=== PATIENT | male | born 1995 | race Caucasian/White ===

== ENCOUNTER 2020-09-28 10:53 | Inpatient (IN) | payer MEDICAID ==
[~2020-09-28] VITALS: Ht 170.2 cm; Wt 78.9 kg
[2020-09-28] MEDS ORDERED: IV NS 0.9% 1,000 ML BAG IV ONE (11:30)
[2020-09-28] MEDS ORDERED: ONDANSETRON HCL/PF 4 MG/2 ML VIAL IVP ONE (11:30)
--- NOTE | 2020-09-28 11:35 | NUR ---
BIBS TO ER BED 6. AAOX4. NOT IN RESP DISTRESS, BREATHING EVEN AND UNLABORED. CAME IN FOR PALPITATION AND CP UPON WAKING UP TODAY AND NAUSE, VOMMTING AND DIRHHEA FOR THE PAST 3 DAYS. PT REPORTS THAT HE WAS A LIVER TRANSPLANT PT, DONE BACJ IN 2007. WAS AT THE [facility]ESIDE FOR EVAL. ORDERS RECEIVED, NOTED AND CARRIED OUT. IV LINE ESTABLISHED ON L AC 18G, BLOOD DRAWN AND GIVEN TO PHLEB. PT IS ON MONITOR
[2020-09-28] MEDS ORDERED: ONDANSETRON HCL/PF 4 MG/2 ML VIAL ONE (11:41)
[2020-09-28 11:48] LABS: CREATININE 1.2 mg/dL (0.6-1.3); POTASSIUM 3.9 mmol/L (3.5-5.1)
[2020-09-28 11:54] LABS: BASOPHILS % (AUTO) 0.4 % (0.0-2.0); BILIRUBIN,DIRECT 0.4 mg/dL (0.0-0.2); BILIRUBIN,TOTAL 1.1 mg/dL (0.2-1.0); EOSINOPHILS % (AUTO) 2.4 % (0.0-6.0); HEMATOCRIT 44 % (39-51); HEMOGLOBIN 15.3 g/dL (13.5-17.5); LYMPHOCYTES # (AUTO) 0.6 /CMM (0.8-4.8); LYMPHOCYTES % (AUTO) 4.5 % (20.0-44.0); MEAN CORPUSCULAR HGB CONC 34 g/dl (31.0-36.0); MEAN CORPUSCULAR VOLUME 86 fL (80-96); MONOCYTES # (AUTO) 0.4 /CMM (0.1-1.30); MONOCYTES % (AUTO) 3.1 % (2.0-12.0); NEUTROPHILS # (AUTO) 10.9 /CMM (1.8-8.9); NEUTROPHILS % (AUTO) 89.6 % (43.0-81.0); PLATELET COUNT (AUTO) 192 /CMM (150-450); RED BLOOD CELL COUNT(AUTO) 5.17 MIL/uL (4.5-6.0); TOTAL PROTEIN, SERUM 7.5 g/dL (6.4-8.2); WHITE BLOOD COUNT (AUTO) 12.1 K/uL (4.3-11.0)
[2020-09-28 12:24] LABS: BILIRUBIN,URINE SMALL (NEGATIVE); COLOR,URINE YELLOW (YELLOW); LEUKOCYTE ESTERASE ,URINE Negative (NEGATIVE); NITRITE, URINE Negative (NEGATIVE); PH,URINE 5.5 (5.0-8.0); PROTEIN,URINE Negative (NEGATIVE); UGLUCOSE >=1000 mg/dL (NEGATIVE); UROBILINOGEN,URINE 0.2 EU/dL (0.2)
[2020-09-28 12:30] LABS: BACTERIA,URINE Rare /HPF (None Seen); RBC,URINE 0-2 /HPF (0-2); WBC,URINE 0-2 /HPF (0-3)
[2020-09-28 12:31] LABS: SQUAMOUS EPITHELIAL CELL,UR None Seen /HPF (None Seen)
[2020-09-28 12:33] LABS: CALCIUM, SERUM 9.9 mg/dL (8.5-10.1)
[2020-09-28] MEDS ORDERED: PRED5TAB PO (14:06)
[2020-09-28] MEDS ORDERED: MYCO250C8 MT (14:06)
[2020-09-28] MEDS ORDERED: DOCU100C36 PO (14:06)
[2020-09-28] MEDS ORDERED: INSU100V SQ (14:06)
[2020-09-28] MEDS ORDERED: MAGN400T26 PO (14:06)
[2020-09-28] MEDS ORDERED: TACR1CAP7 MT (14:06)
[2020-09-28] MEDS ORDERED: OMEP20TA5 PO (14:06)
[2020-09-28] MEDS ORDERED: CALC-883 PO (14:08)
[2020-09-28] MEDS ORDERED: ZINC1CAP2 PO (14:08)
--- NOTE | 2020-09-28 14:20 | NUR ---
[facility] LIVER TRANSPLANT TO MD. REYES PAGED FOR ADMISSION.
--- NOTE | 2020-09-28 16:08 | NUR ---
COVID POSITIVE. CALLED FOR ROOM ASSISGNMENT
--- NOTE | 2020-09-28 16:38 | NUR ---
ROOM ASSIGNMENT: [id number] TELE
[2020-09-28] MEDS ORDERED: MAG HYDROX/AL HYDROX/SIMETH 30 ML UDC PO PRN (17:30)
[2020-09-28] MEDS ORDERED: MAGNESIUM HYDROXIDE 30 ML UDC PO PRN (17:30)
[2020-09-28] MEDS ORDERED: ONDANSETRON HCL/PF 4 MG/2 ML VIAL IVP PRN (17:30)
--- NOTE | 2020-09-28 17:30 | NUR ---
PATIENT RECEIVED IN BED ON ROOM AIR. PATIENT IS AMBULATORY AND ALERT, ORIENTED X4. PT HAS LEFT AC 20G INTACT AND FLUSHED WELL. BELONGINGS CHECKED, ALL SAFETY MEASURES IN PLACE. WILL CONTINUE TO MONITOR
[2020-09-28] MEDS: MYCOPHENOLATE MOFETIL 250 MG CAPSULE PO SCH (18:29)
[2020-09-28] MEDS: MORPHINE SULFATE INJ 2 MG/ML DISP.SYRIN IV PRN ×2 (18:41→23:17)
--- NOTE | 2020-09-28 19:00 | NUR ---
ALL PATIENT NEEDS ENDORSED TO ONCOMING RN. CONSENT OBTAINED FOR CT ABDOMENT/PELVIS WITH CONTRAST. PATIENT CURRENTLY NPO EXCEPT MEDS. ALL SAFETY MEASURES IN PLACE . REPORT GIVEN TO ONCOMING RN FOR BETH
--- NOTE | 2020-09-28 19:59 | NUR ---
RN NOTE PATIENT A/O X3, ABLE TO MAKE NEEDS KNOWN. NO SOB OR ANY RESPIRATORY DISTRESS. ON ROOM AIR, O2 WNL. WITH IV ACCESS LAC #20, PATENT AND INTACT. ALL NEEDS ANTICIPATED. BED LOCKED AND IN LOWEST POSITION. CALL LIGHT WITHIN REACH. WILL CONTINUE TO MONITOR.
[2020-09-28] MEDS: TACROLIMUS ANHYDROUS 0.5 MG CAPSULE PO SCH (20:38)
[2020-09-28] MEDS ORDERED: TACROLIMUS ANHYDROUS 1 MG CAPSULE PO SCH (21:00)
[2020-09-28] MEDS ORDERED: DEXTROSE 50%-WATER 50 ML DISP.SYRIN IV PRN (23:00)
[2020-09-28] MEDS ORDERED: IV D5/0.45 NACL 1,000 ML IV PRN (23:00)
[2020-09-29] MEDS: BLOOD SUGAR DIAGNOSTIC 1 EACH STRIP IN SCH ×5 (00:13→21:24)
[2020-09-29] MEDS: INSULIN REGULAR, HUMAN 100 UNIT/ML 3 ML VIAL SQ PRN ×3 (00:19→18:19)
--- NOTE | 2020-09-29 00:38 | NUR ---
BLOOD SUGAR 139, HELD INSULIN DOSE. PATIENT IS NPO DIAGNOSIS
[2020-09-29] MEDS: MORPHINE SULFATE INJ 2 MG/ML DISP.SYRIN IV PRN ×3 (05:29→21:25)
--- NOTE | 2020-09-29 06:00 | NUR ---
BLOOD SUGAR 183, INSULIN HELD. PATIENT IS NPO DX.
[2020-09-29 06:35] LABS: BASOPHILS # (AUTO) 0.1 /CMM (0.0-0.2); BASOPHILS % (AUTO) 0.7 % (0.0-2.0); EOSINOPHILS % (AUTO) 9.3 % (0.0-6.0); HEMATOCRIT 40 % (39-51); HEMOGLOBIN 13.3 g/dL (13.5-17.5); LYMPHOCYTES # (AUTO) 2.3 /CMM (0.8-4.8); LYMPHOCYTES % (AUTO) 30.4 % (20.0-44.0); MEAN CORPUSCULAR HGB CONC 34 g/dl (31.0-36.0); MEAN CORPUSCULAR VOLUME 85 fL (80-96); MONOCYTES # (AUTO) 0.6 /CMM (0.1-1.30); MONOCYTES % (AUTO) 8.3 % (2.0-12.0); NEUTROPHILS # (AUTO) 3.9 /CMM (1.8-8.9); NEUTROPHILS % (AUTO) 51.3 % (43.0-81.0); PLATELET COUNT (AUTO) 159 /CMM (150-450); RED BLOOD CELL COUNT(AUTO) 4.69 MIL/uL (4.5-6.0); WHITE BLOOD COUNT (AUTO) 7.6 K/uL (4.3-11.0)
[2020-09-29 06:50] LABS: CALCIUM, SERUM 8.1 mg/dL (8.5-10.1); MAGNESIUM 1.5 mg/dL (1.8-2.4); POTASSIUM 3.5 mmol/L (3.5-5.1)
--- NOTE | 2020-09-29 07:40 | NUR ---
MS RN NOTE OPENING NOTES RECEIVED PATIENT IN BED, AWAKE, A/O X4, ABLE TO MAKE NEEDS KNOWN. NO SOB OR ANY RESPIRATORY DISTRESS. ON ROOM AIR. IV ACCESS ON LAC #20, PATENT AND INTACT RUNNING D5 1/2 NS @ 75ML/HR. SAFETY PRECAUTIONS IN PLACE; BE IN LOW POSITION AND LOCKED, RAILS UP X2, CALL LIGHT WITHIN REACH. WILL CONTINUE TO MONITOR PATIENT.
--- NOTE | 2020-09-29 07:41 | NUR ---
RN NOTE PATIENT A/O X3, ABLE TO MAKE NEEDS KNOWN. NO SOB OR ANY RESPIRATORY DISTRESS. ON ROOM AIR, O2 WNL. WITH IV ACCESS LAC #20, PATENT AND INTACT RUNNING D5 1/2 NS @ 75ML/HR. ALL NEEDS ANTICIPATED. BED LOCKED AND IN LOWEST POSITION. CALL LIGHT WITHIN REACH. ENDORSED TO AM SHIFT.
[2020-09-29] MEDS: MYCOPHENOLATE MOFETIL 250 MG CAPSULE PO SCH ×2 (08:27→16:31)
[2020-09-29] MEDS: PANTOPRAZOLE 40 MG VIAL IV SCH (08:27)
[2020-09-29] MEDS: ZINC SULFATE 220 MG CAPSULE PO SCH (08:27)
[2020-09-29] MEDS: CALCIUM CARB 600MG /VIT D 1 EACH TABLET PO SCH (08:28)
[2020-09-29] MEDS: predniSONE 5 MG TABLET PO SCH (08:28)
[2020-09-29] MEDS: TACROLIMUS ANHYDROUS 0.5 MG CAPSULE PO SCH ×2 (08:29→21:24)
[2020-09-29] MEDS ORDERED: Magnesium 1GM/D5W 100ML PREMIX PIGGYBACK IV ONE (09:30)
[2020-09-29] MEDS ORDERED: DEXTROSE 50%-WATER 50 ML DISP.SYRIN IV PRN (09:30)
[2020-09-29] MEDS ORDERED: IV NS 0.9% 250 ML IV ONE (09:38)
[2020-09-29] MEDS ORDERED: CT SWABBABLE VALVE TRANS SET 1 EA INFUS.SET MC ONE (09:38)
[2020-09-29] MEDS ORDERED: IOHEXOL-300 100 ML VIAL IV ONE (09:38)
[2020-09-29] MEDS: MGSO4/D5W 100 ML IV SCH ×3 (09:51→11:52)
--- NOTE | 2020-09-29 11:01 | NUR ---
MS RN NOTES PATIENT COMPLAINING OF HEADACHE 7-8 OUT OF 10; REQUESTING PRN PAIN MEDICATION. PRN MORPHINE ADMINISTERED. WILL REASSESS.
[2020-09-29 12:19] LABS: ALBUMIN 3.3 g/dL (3.4-5.0); BILIRUBIN,DIRECT 0.3 mg/dL (0.0-0.2); BILIRUBIN,TOTAL 1.1 mg/dL (0.2-1.0); TOTAL PROTEIN, SERUM 6.5 g/dL (6.4-8.2)
[2020-09-29] MEDS ORDERED: METOCLOPRAMIDE HCL 10 MG/2 ML VIAL IV ONE (13:00)
--- NOTE | 2020-09-29 18:55 | NUR ---
MS RN CLOSING NOTES PATIENT RESTING IN BED, AWAKE, A/O X4, ABLE TO MAKE NEEDS KNOWN. NO SOB OR ANY RESPIRATORY DISTRESS. ON ROOM AIR. IV ACCESS ON LAC #20, PATENT AND INTACT RUNNING D5 1/2 NS @ 75ML/HR. ALL NEEDS ATTENDED THROUGHOUT THE DAY. SAFETY PRECAUTIONS REMAIN IN PLACE; BED IN LOW POSITION AND LOCKED, RAILS UP X2, CALL LIGHT WITHIN REACH. WILL ENDORSE TO HOUSE DIRECTOR NURSE.
--- NOTE | 2020-09-29 19:13 | NUR ---
RN NOTE RECEIVED PT ALERT AND ORIENTED X 4. ON ROOM AIR, NO APPARENT DISTRESS, DENIES PAIN OR DISCOMFORT, AMBULATORY, LEFT AC 20G IV PATENT AND FLUSHING WELL, PLAN OF CARE DISCUSSED, CALL LIGHT WITHIN REACH, SAFETY MEASURES IN PLACE PER PROTOCOL, WILL MONITOR
[2020-09-29 20:00] VITALS: BP 114/70
--- NOTE | 2020-09-29 21:15 | NUR ---
RN NOTE BLOOD SUGAR 66. NO SYMPTOMS OF HYPOGLYCEMIA, REGULAR INSULIN AND LANTUS WITHHELD. GAVE PT ORANGE JUICE AND ADDITIONAL SNACKS.
[2020-09-29] MEDS ORDERED: INSULIN GLARGINE, 100 UNIT/ML CARTRIDGE SQ SCH (22:00)
--- NOTE | 2020-09-30 02:00 | NUR ---
RN NOTE PT AWAKE LYING IN BED IN SUPINE POSITION PLAYING ON CELLPHONE, NO FURTHER NEEDS AT THIS TIME.
[2020-09-30 04:00] VITALS: BP 126/86
[2020-09-30] MEDS: MORPHINE SULFATE INJ 2 MG/ML DISP.SYRIN IV PRN (04:47)
[2020-09-30 06:30] LABS: BASOPHILS # (AUTO) 0.1 /CMM (0.0-0.2); BASOPHILS % (AUTO) 0.8 % (0.0-2.0); EOSINOPHILS % (AUTO) 7.3 % (0.0-6.0); HEMATOCRIT 39 % (39-51); HEMOGLOBIN 13.6 g/dL (13.5-17.5); LYMPHOCYTES # (AUTO) 2.6 /CMM (0.8-4.8); LYMPHOCYTES % (AUTO) 31.1 % (20.0-44.0); MEAN CORPUSCULAR HGB CONC 35 g/dl (31.0-36.0); MEAN CORPUSCULAR VOLUME 84 fL (80-96); MONOCYTES # (AUTO) 0.7 /CMM (0.1-1.30); MONOCYTES % (AUTO) 8.1 % (2.0-12.0); NEUTROPHILS # (AUTO) 4.4 /CMM (1.8-8.9); NEUTROPHILS % (AUTO) 52.7 % (43.0-81.0); PLATELET COUNT (AUTO) 173 /CMM (150-450); RED BLOOD CELL COUNT(AUTO) 4.69 MIL/uL (4.5-6.0); WHITE BLOOD COUNT (AUTO) 8.3 K/uL (4.3-11.0)
--- NOTE | 2020-09-30 06:41 | NUR ---
RN NOTE PT SLEEPING IN BED IN SUPINE POSITION BUT EASILY AROUSABLE. NO SIGNS OF PAIN OR DISCOMFORT. IN NO APPARENT DISTRESS, ALL NEEDS MET AND ATTENDED TO, CALL LIGHT WITHIN REACH, SAFETY MEASURES IN PLACE
[2020-09-30 07:11] LABS: ALBUMIN 3.1 g/dL (3.4-5.0); BILIRUBIN,TOTAL 0.6 mg/dL (0.2-1.0); CALCIUM, SERUM 8.3 mg/dL (8.5-10.1); CREATININE 0.9 mg/dL (0.6-1.3); POTASSIUM 3.2 mmol/L (3.5-5.1); TOTAL PROTEIN, SERUM 6.5 g/dL (6.4-8.2)
--- NOTE | 2020-09-30 07:20 | NUR ---
RN NOTE ENDORSED PT TO LEATHER DRIER SOON IN STABLE CONDITION.
--- NOTE | 2020-09-30 07:45 | NUR ---
RN OPENING NOTE PT A/Ox4, LYING IN BED BREATHING RA WITH NO SIGNS OF RESP DISTRESS OR SOB, SPO2 99%. PT HAS RT HAND #22, FLUSHED, PATENT AND INTACT WITH NO S/S OF INFECTION OR INFILTRATION. PT DENIES PAIN. PT ABLE TO AMBULATE NO PROBLEM. ALL PT SAFETY PRECAUTIONS IN PLACE, WILL CONT TO MONITOR
[2020-09-30 08:00] VITALS: BP 127/90
[2020-09-30] MEDS: BLOOD SUGAR DIAGNOSTIC 1 EACH STRIP IN SCH ×2 (09:31→12:26)
[2020-09-30] MEDS: PANTOPRAZOLE 40 MG VIAL IV SCH (09:32)
[2020-09-30] MEDS: TACROLIMUS ANHYDROUS 0.5 MG CAPSULE PO SCH (09:33)
[2020-09-30] MEDS: predniSONE 5 MG TABLET PO SCH (09:34)
[2020-09-30] MEDS: ZINC SULFATE 220 MG CAPSULE PO SCH (09:34)
[2020-09-30] MEDS: CALCIUM CARB 600MG /VIT D 1 EACH TABLET PO SCH (09:34)
[2020-09-30] MEDS: MYCOPHENOLATE MOFETIL 250 MG CAPSULE PO SCH (09:35)
[2020-09-30] MEDS: INSULIN REGULAR, HUMAN 100 UNIT/ML 3 ML VIAL SQ PRN ×2 (09:54→12:29)
[2020-09-30] MEDS: POTASSIUM CHLORIDE 20 MEQ TAB.PRT.SR PO SCH ×2 (11:21→12:28)
[2020-09-30] MEDS ORDERED: ONDA4TAB11 PO (13:56)
[2020-09-30 16:00] VITALS: BP 121/84
--- NOTE | 2020-09-30 17:30 | NUR ---
RN NOTE PT DISCHARGED IN STABLE CONDITION
== END 2020-09-30 17:41 | disposition home or self-care (01) | DRG 282 ==
LOC: ER 11:03 → TELE1 16:29 → MEDSG1 17:34
PROVIDERS: ADMIT Nurse Practitioner Family; ATTEND Nurse Practitioner Family
DX: K85.90 Acute pancreatitis without necrosis or infection, unspecified (principal); E11.9 Type 2 diabetes mellitus without complications; Z94.4 Liver transplant status; Z79.4 Long term (current) use of insulin; B15.9 Hepatitis A without hepatic coma; Z79.899 Other long term (current) drug therapy; K56.7 Ileus, unspecified; D72.829 Elevated white blood cell count, unspecified; U07.1 COVID-19
CPT/HCPCS: 36415; 71045-TC; 76705-TC; 80048-TC; 80053-TC; 80061-TC; 80076-TC; 81001; 82962-TC; 83690-TC; 83735-TC; 85025-TC; 87081-TC; C9113; C9803; G0378; J1815; J2270; J2405; J2765; J3475; J3490; J7030; J7050; J7507; J7512; J7517; Q9967; U0003